=== PATIENT | female | born 1980 | race Caucasian/White ===

== ENCOUNTER 2016-10-04 21:21 | Emergency (ER) | payer OTHER ==
[2016-10-04 21:26] VITALS: BP 136/77; PULSE 88; TEMP 97.9; BMI 30.4
[2016-10-04 22:30] LABS: BASOPHIL 0.3 % (0-2.0); MCH 30.4 pg (25.7-33.7); MCHC 33.2 g/dl (32.0-36.0); MEAN CELL VOLUME 91.6 fl (80-96); MEAN PLT VOLUME 10.3 fl (7.5-11.1); NEUTROPHILS 67.1 % (42.8-82.8); PLATELET COUNT 197 K/MM3 (134-434); RDW 13.6 % (11.6-15.6); WHITE BLOOD COUNT 12.8 K/mm3 (4.0-10.0)
--- NOTE | 2016-10-04 22:30 | PDOC ---
History of Present Illness - General History Source: Patient Exam Limitations: No Limitations - History of Present Illness Initial Comments: 10/04/16 22:46 Patient is a 35 year old female, , 14 weeks , with no significant past medical history who presents to the ED with vaginal bleeding since today. She states that she was taking a shower today as she developed lower abdominal cramping that is usual for her since 8 weeks. She states that she went to use the bathroom as she felt passing of the blood, bright red without any clots. Patient reports blood upon whipping. She states that similar happened to her at 8 weeks where she bled for 1 day without any clots and it resolved on its own. Patient reports lower abdominal cramping now that is constant. She states that she was diagnosed with UTI yesterday and was started on Amoxicillin. Patient reports normal PO intake. She denies any recent trauma, fall or strenuous activity. Patient denies any abdominal cramping or pain. <Naomi Moraes - Last Filed: 10/04/16 22:46> <Glo Kevin - Last Filed: 10/05/16 01:35> - General Chief Complaint: Vaginal Bleeding Stated Complaint: 14WKS/VAGINAL BLEEDING Time Seen by Provider: 10/04/16 22:28 Past History <Naomi Moraes - Last Filed: 10/04/16 22:46> - Immunization History Immunization Up to Date: Yes - Psycho/Social/Smoking Cessation Hx Suicidal Ideation: No Smoking History: Never smoked Information on smoking cessation initiated: No Hx Alcohol Use: No Drug/Substance Use Hx: No Substance Use Type: None <Glo Kevin - Last Filed: 10/05/16 01:35> - Past Medical History Allergies/Adverse Reactions: Allergies Allergy/AdvReac Type Severity Reaction Status Date / Time No Known Allergies Allergy Verified 10/04/16 21:22 Review of Systems - Review of Systems Able to Perform ROS?: Yes Comments:: 10/04/16 22:46 GENERAL/CONSTITUTIONAL: No fever or chills. No weakness. HEAD, EYES, EARS, NOSE AND THROAT: No change in vision. No ear pain or discharge. No sore throat. CARDIOVASCULAR: No chest pain or shortness of breath. RESPIRATORY: No cough, wheezing, or hemoptysis. GASTROINTESTINAL: No nausea, vomiting, diarrhea or constipation. GENITOURINARY: (+) vaginal bleeding. No dysuria, frequency, or change in urination. MUSCULOSKELETAL: No joint or muscle swelling or pain. No neck or back pain. SKIN: No rash NEUROLOGIC: No headache, vertigo, loss of consciousness, or change in strength/ sensation. ENDOCRINE: No increased thirst. No abnormal weight change. HEMATOLOGIC/LYMPHATIC: No anemia, easy bleeding, or history of blood clots. ALLERGIC/IMMUNOLOGIC: No hives or skin allergy. <Naomi Moraes - Last Filed: 10/04/16 22:46> *Physical Exam - Vital Signs Last Vital Signs Temp Pulse Resp BP Pulse Ox 97.9 F 88 18 136/77 99 10/04/16 21:23 10/04/16 21:23 10/04/16 21:23 10/04/16 21:23 10/04/16 21:23 - Physical Exam Comments: 10/04/16 22:46 GENERAL: Awake, alert, and fully oriented, in no acute distress HEAD: No signs of trauma EYES: PERRLA, EOMI, sclera anicteric, conjunctiva clear ENT: Auricles normal inspection, hearing grossly normal, nares patent, oropharynx clear without exudates. Moist mucosa NECK: Normal ROM, supple, no lymphadenopathy, JVD, or masses LUNGS: Breath sounds equal, clear to auscultation bilaterally. No wheezes, and no crackles HEART: Regular rate and rhythm, normal S1 and S2, no murmurs, rubs or gallops ABDOMEN: (+)gravid. Soft, nontender, normoactive bowel sounds. No guarding, no rebound. No masses EXTREMITIES: Normal range of motion, no edema. No clubbing or cyanosis. No cords, erythema, or tenderness NEUROLOGICAL: Cranial nerves II through XII grossly intact. Normal speech, normal gait SKIN: Warm, Dry, normal turgor, no rashes or lesions noted. <Naomi Moraes - Last Filed: 10/04/16 22:46> - Vital Signs Last Vital Signs Temp Pulse Resp BP Pulse Ox 97.9 F 88 18 136/77 99 10/04/16 21:23 10/04/16 21:23 10/04/16 21:23 10/04/16 21:23 10/04/16 21:23 <Glo Kevin - Last Filed: 10/05/16 01:35> ED Treatment Course - LABORATORY CBC & Chemistry Diagram: 10/04/16 22:23 10/04/16 22:23 - ADDITIONAL ORDERS Additional order review: 10/04/16 22:23 RBC 4.01 MCV 91.6 MCHC 33.2 RDW 13.6 MPV 10.3 Neutrophils % 67.1 Lymphocytes % 22.0 Monocytes % 9.6 Eosinophils % 1.0 Basophils % 0.3 <Naomi Moraes - Last Filed: 10/04/16 22:46> - LABORATORY CBC & Chemistry Diagram: 10/04/16 22:23 10/04/16 22:23 <Glo Kevin - Last Filed: 10/05/16 01:35> Medical Decision Making - Medical Decision Making 10/05/16 00:12 Patient Name: Agustina Raman THIS IS A PRELIMINARYREPORT FROM [facility] EXAM: Ultrasound IMAGES: 21 INDICATION: Threatened miscarriage DATE OF SERVICE: 2016-10-04 23:36:50.0 COMPARISON: none FINDINGS: Uterus is anteverted and measures 17.0centimeters in length. There is a single live IUP in cephalic position with estimated gestational age of 15weeks and onedays. There is a normal heart rate of 133beats per minute. Fundal placenta is noted with previa or abruption. Normal mild amniotic fluid for age. The cervix is 4.7 cm in length and closed. Ovaries not identified. There is no significant free fluid. IMPRESSION: Live IUP with estimated 15 weeks one day, without definite abnormalities. THIS DOCUMENT HAS BEEN ELECTRONICALLY SIGNED 10/05/16 01:31 Pt is O negative and as she is having vag bleed I will treat her with RhoGAM dose. Pt states that baby xiomara is Onegative also and that she doesnt require Rho kush. However, there is no way for me to assess who baby xiomara is so I will teat pt. She also tells me that she is currently on day 2 of amox abx for UTI. UA in the ER is normal. Sono demonstrates a live IUP. Pt will follow with her [employer]. Labs are all normal in the ER. Pt has a normal physical exam. Her vag bleeding has decreased at this time. Pt has no flank pain. Minimal suprapubic tenderness <Glo Kevin - Last Filed: 10/05/16 01:35> *DC/Admit/Observation/Transfer <Naomi Moraes - Last Filed: 10/04/16 22:46> - Discharge Dispostion Admit: No <Glo Kevin - Last Filed: 10/05/16 01:35> Diagnosis at time of Disposition: Threatened - Discharge Dispostion Disposition: HOME Condition at time of disposition: Stable - Referrals Referrals: STAFF,NOT ON [Primary Care Provider] - - Patient Instructions Printed Discharge Instructions: Threatened , Rh Incompatibility and Isoimmunization
[2016-10-04] MEDS ORDERED: RHO(D) IMMUNE GLOBULIN 1,500 UNIT DISP.SYRIN IM ONE (22:42)
[2016-10-04 22:47] LABS: URINE APPEARANCE CLEAR; URINE BILIRUBIN NEGATIVE (NEGATIVE); URINE COLOR STRAW; URINE GLUCOSE (UA) NEGATIVE (NEGATIVE); URINE KETONE NEGATIVE (NEGATIVE); URINE LEUK ESTERASE NEGATIVE (NEGATIVE); URINE NITRITE NEGATIVE (NEGATIVE); URINE PROTEIN NEGATIVE (NEGATIVE); URINE UROBILINOGEN NEGATIVE E.U./dl (0.2-1.0)
[2016-10-04 22:53] LABS: URINE BLOOD 3+ (NEGATIVE)
[2016-10-04 22:54] LABS: URINE RBC 69 /hpf (0-3); URINE WBC 26 /hpf (3-5)
[2016-10-04 23:12] LABS: ANION GAP 14 (8-16); BILIRUBIN,TOTAL 0.1 mg/dL (0.2-1.0); CALCIUM 8.7 mg/dL (8.5-10.1); CO2 22 mmol/L (21-32); COCKROFT - GAULT 163.7015; CREATININE 0.7 mg/dL (0.55-1.02); GLUCOSE,RANDOM 97 mg/dL (74-106); SGOT/AST 14 U/L (15-37); SGPT/ALT 26 U/L (12-78); TOT PROT 6.1 g/dl (6.4-8.2)
[2016-10-04 23:27] LABS: ALK PHOS 82 U/L (45-117)
== END 2016-10-05 00:26 | disposition home or self-care (01) ==
LOC: JER 21:21
DX: O20.0 Threatened abortion (principal); Z3A.15 15 weeks gestation of pregnancy
CPT/HCPCS: 36415; 76801-TC; 80053; 81003; 81015; 84702; 85025; 86850; 86900; 86901; 86999; 99283-25; J1561